=== PATIENT | female | born 1970 | race African-American/Black ===

== ENCOUNTER 2020-05-08 20:34 | Emergency (ER) | payer SELFPAY ==
[2020-05-08 20:45] VITALS: BP 145/95; PULSE 120; RESP 20; TEMP 36.3; O2SAT 98
--- NOTE | 2020-05-08 21:19 | ED.PSYCH ---
HPI - Psych General Chief Complaint: Psychiatric Symptoms <Christine Ferrell MD - Last Filed: 05/09/20 07:02> Stated Complaint: manic <Christine Ferrell MD - Last Filed: 05/09/20 07:02> Time Seen by Provider: 05/08/20 21:18 <Christine Ferrell MD - Last Filed: 05/09/20 07:02> Source: patient and EMS <Christine Ferrell MD - Last Filed: 05/09/20 07:02> Mode of arrival: EMS <Christine Ferrell MD - Last Filed: 05/09/20 07:02> Limitations: clinical condition <Christine Ferrell MD - Last Filed: 05/09/20 07:02> History of Present Illness HPI Narrative: Patient is a 50-year-old female with a history of schizophrenia, bipolar disorder, not currently on any medication who presented to emergency department via EMS. Apparently, a person at [facility] called EMS as the patient was shouting, agitated. Pt transported via EMS. At the time of my assessment, patient is telling me how numerous people are trying to take her away, she states that she is in [place], then states she is in [place]. She is endorsing that her mouth feels dry, otherwise history is very difficult to obtain from this patient. She states people like demons are trying to steal her. She also talks about being part of [employer] and the [employer] service. She says they know where to find her. When I asked specific questions about pain, medical symptoms, patient does not answer. <Christine Ferrell MD - Last Filed: 05/09/20 07:02> Related Data Home Medications: Home Medications Medication Instructions Recorded Confirmed Unable to Obtain Home Medications 05/09/20 05/09/20 <Christine Ferrell MD - Last Filed: 05/09/20 07:02> Allergies/Adverse Reactions: Allergies Allergy/AdvReac Type Severity Reaction Status Date / Time No Known Allergies Allergy Verified 05/09/20 03:46 <Christine Ferrell MD - Last Filed: 05/09/20 07:02> Review of Systems Review of Systems: ROS unobtainable: Yes unobtainable due to medical condition <Christine Ferrell MD - Last Filed: 05/09/20 07:02> [facility] Past Medical History Medical History: Medical History (Updated 05/09/20 @ 04:19 by Christine Ferrell MD) Bipolar disorder Schizophrenia <Christine Ferrell MD - Last Filed: 05/09/20 07:02> Social History Social History: Social History (Updated 05/08/20 @ 21:48 by Christine Ferrell MD) Smoking status: Unknown if ever smoked Substance use type: unknown Gender identity (if verbalized by the patient): Female <Christine Ferrell MD - Last Filed: 05/09/20 07:02> Exam Narrative: Exam Narrative: GENERAL: Awake, alert, rapping, singing HEAD: Normocephalic, atraumatic. EYES: PERRLA and EOMI. ENT: Nares clear, no rhinorrhea or epistaxis. Mucous membranes moist. NECK: Supple. CHEST: No respiratory distress, breathing even and non labored HEART: Tachycardic rate, sinus rhythm ABDOMEN:Non distended, non tender EXTREMITIES: Normal range of motion. No edema. SKIN: Warm, dry, no rash. NEURO:No focal deficits. Alert and oriented x3. Pt ambulatory with narrow based steady gait. Psych: Pressured speech, Pt is screaming, singing, does not answer questions regarding suicidal or homicidal ideation <Christine Ferrell MD - Last Filed: 05/09/20 07:02> Course Reevaluation(s) Reevaluation #1: Patient has been resting and sleeping. She has been accepted to [facility] by DR Cox. <Juanita Ricci MD - Last Filed: 05/09/20 19:41> Date: 05/09/20 <Juanita Ricci MD - Last Filed: 05/09/20 19:41> Time: 16:45 <Juanita Ricci MD - Last Filed: 05/09/20 19:41> Vital Signs Vital signs: Vital Signs Temperature 97.3 F L 05/08/20 20:45 Pulse Rate 120 H 05/08/20 20:45 Respiratory Rate 20 05/08/20 20:45 Blood Pressure 145/95 H 05/08/20 20:45 Pulse Oximetry 98 05/08/20 20:45 Temperature 97.3 F L 05/09/20 06:18 Pulse Rate 102 H 05/09/20 17:55 Respiratory Rate 18 05/09/20
[2020-05-08 21:27] LABS: Basophils Percent Auto 0.4 % (0.2-1.2); Eosinophils Absolute Auto 0.2 K/mm3 (0-0.3); Eosinophils Percent Auto 2.7 % (0-4.4); Hematocrit 29.9 % (37.0-47.0); Hemoglobin 9.4 g/dL (12.0-15.0); Immature Granulocyte Absolute 0.02 K/mm3 (0.00-0.031); Immature Granulocyte Percent A 0.2 % (0-0.5); Lymphocytes Absolute Auto 2.56 K/mm3 (0.9-3.2); Lymphocytes Percent Auto 31.1 % (18.3-44.2); Mean Corpuscular HGB Conc 31.4 g/dl (32-36); Mean Corpuscular Hemoglobin 24.4 pg (26-34); Mean Corpuscular Volume 77.5 fl (80-100); Mean Platelet Volume 10.3 fl (7.4-10.4); Monocytes Absolute Auto 0.6 K/mm3 (0.1-0.6); Monocytes Percent Auto 7.2 % (2.6-8.5); Neutrophils Absolute Auto 4.8 K/mm3 (1.3-6.7); Neutrophils Percent Auto 58.4 % (45.5-73.1); Platelet Count Result 327 k/mm3 (150-375); Red Blood Count 3.86 M/mm3 (4.2-5.4); Red Cell Distribution Width 17.2 % (11.5-14.5); White Blood Count 8.2 K/mm3 (4.5-10.0)
[2020-05-08 21:37] LABS: Ethanol < 10 mg/dL (<10)
[2020-05-08 21:38] LABS: Alanine Aminotransferase 13 U/L (4-35); Alkaline Phosphatase 88 U/L (38-126); Anion Gap 8 mmol/L (8-16); Aspartate Amino Transferase 23 U/L (14-36); Bilirubin,Total 0.1 mg/dL (0.2-1.3); Blood Urea Nitrogen 18 mg/dL (7-17); Calcium 9.1 mg/dL (8.4-10.2); Carbon Dioxide 24 mmol/L (22-30); Chloride 106 mmol/L (98-107); Estimated CRCL calculation 52 ml/min; Estimated Glomerular Filt Rate 59; Glucose 128 mg/dL (65-105); Potassium 3.6 mmol/L (3.4-5.0); Sodium 138 mmol/L (137-145)
--- NOTE | 2020-05-08 21:49 | ECG_ITS ---
Measurements Intervals Hansen Rate: 102 P: 60 NC: 137 QRS: 61 QRSD: 80 T: 34 QT: 333 QTc: 435 Interpretive Statements SINUS TACHYCARDIA BORDERLINE ECG Electronically Signed On 05-09-2020 10:04:09 CDT by Brandt Tirado D.O.
[2020-05-08 22:38] LABS: Add Urine Microscopic? YES; Amorphous Sediment Urine Few; Appearance Urine Cloudy (Clear); Bilirubin Urine 1+ (Negative); Blood Urine Negative (Negative); Color Urine Yellow (Yellow); Glucose Urine UA Negative (Negative); Ketones Urine Negative (Negative); Leukocyte Esterase Ur Trace LEU/UL (Negative); Mucus Urine Heavy /lpf; Nitrate Urine Negative (Negative); Protein Urine 1+ mg/dL (Negative); RBC Urine 0-2 /hpf (0-2); Specific Grav Ur 1.035 (1.001-1.035); Squamous Epithelial Cell Urine Many /hpf (Few); WBC Urine 0-3 /hpf
[2020-05-08 22:51] LABS: Amphetamine Screen Urine Negative (Negative); Barbiturate Screen Urine Negative (Negative); Benzodiazepines Screen Urine Negative (Negative); Cannabinoid Screen Urine Negative (Negative); Cocaine Screen Urine Negative (Negative); Methadone Screen Urine Negative (Negative); Opiate Screen Urine Negative (Negative); Phencyclidine Screen Urine Negative (Negative)
--- NOTE | 2020-05-08 23:25 | PC.NURSE ---
crisis contacted at this time.
--- NOTE | 2020-05-09 01:30 | PC.NURSE ---
Per Twila from [facility], [facility] in [place] wants face sheet only faxed to their facility- fax- [phone], Call center #[phone], Nazia will be faxing paperwork to this facility to be completed. Twila also left a message at [facility].
[2020-05-09 02:02] VITALS: BP 119/80; PULSE 106; RESP 16; O2SAT 100
--- NOTE | 2020-05-09 02:27 | PC.NURSE ---
[facility] called told to fax packet over to them.
[2020-05-09] MEDS: diphenhydrAMINE HCl INJ 50 MG/ML VIAL IM (03:42)
[2020-05-09] MEDS: HALOPERIDOL LACTATE 5 MG/ML VIAL IM (03:44)
--- NOTE | 2020-05-09 03:44 | PC.NURSE ---
pt not cooperating with staff. refusing to stay in room and stop yelling. edp notified. 50mg Benadryl 2 mg Ativan 5mg Haldol given at this time.
--- NOTE | 2020-05-09 05:26 | PC.NURSE ---
[facility] declined at this time. states they are not able to meet patients needs. edp made aware.
[2020-05-09 06:18] VITALS: BP 104/67; PULSE 79; RESP 16; TEMP 36.3; O2SAT 100
[2020-05-09 10:24] VITALS: BP 93/63; PULSE 74; RESP 18; O2SAT 98
--- NOTE | 2020-05-09 10:25 | PC.NURSE ---
Ordered food tray for patient
--- NOTE | 2020-05-09 10:25 | PC.NURSE ---
refaxed chart to [facility]
--- NOTE | 2020-05-09 13:07 | PC.NURSE ---
Pt accepted to [facility]. Waiting to hear from them on accepting dr and bed number
[2020-05-09 14:59] VITALS: BP 135/86; PULSE 107; O2SAT 100
--- NOTE | 2020-05-09 16:00 | PC.NURSE ---
called to check on status of pt admission. Intake states oh they haven't called to get report yet She transferred me to the psych unit to give report
--- NOTE | 2020-05-09 16:32 | PC.NURSE ---
Pt alert and upright on stretcher, pt c/o feeling hungry, breakfast tray remains on stretcher and is untouched/not eaten. Offered pt lunch box due to EMS in route to take pt to facility.
[2020-05-09 17:55] VITALS: BP 125/83; PULSE 102; RESP 18; O2SAT 100
== END 2020-05-09 19:19 ==
PROVIDERS: Emergency Medicine; Emergency Provider General Practice
DX: F23 Brief psychotic disorder (principal); R00.0 Tachycardia, unspecified; F31.9 Bipolar disorder, unspecified
CPT/HCPCS: 36415; 80053; 80307; 81001; 81025; 84443; 85025; 93005; 96372; 99285; J1200; J1630; J2060

== ENCOUNTER 2020-05-30 17:57 | Emergency (ER) | payer OTHER, SELFPAY ==
--- NOTE | ~2020-05-30 | CT_ITS ---
EXAMINATION: CTA brain carotid DATE: 05/30/2020 18:59 INDICATION: Headache. TECHNIQUE: Computed tomographic angiography (CTA) of the head was performed without and with 100 mL O mnipaque-350 intravenous contrast. CTA of the neck was performed with intravenous contrast. Automated exposure control and iterative reconstruction technique were employed. The dose-length product was 1 612.86 mGy-cm. Maximum intensity projection and volume rendered 3D-reconstructions were created by richy valadez technologist on a separate workstation. COMPARISON: None. FINDINGS: HEAD CTA: There is no intracranial hemorrhage, acute infarction, or abnormal intracranial mass lesion . The ventricles are normal in size. The paranasal sinuses are clear. The orbits are normal. The mast oid air cells are normal. Vertebral arteries are codominant. There is no significant stenosis of basi lar artery or the posterior cerebral arteries. There is no significant stenosis of the intracranial i nternal carotid arteries or anterior or middle cerebral arteries. Anterior communicating artery is no rmal. The posterior communicating arteries are normal. 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 NECK CTA: There are bilateral pleural effusions. There are no pathologically enlarged lymph nodes. Th ere is no significant stenosis of the vertebral arteries. There is mild plaque in the proximal right internal carotid artery. There is 0% stenosis of the proximal right internal carotid artery relative to normal distal artery lumen diameter (NASCET criteria). There is 0% stenosis of the proximal left i nternal carotid artery relative to normal distal artery lumen diameter. There is mild cervical spondy losis. IMPRESSION: 1. 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 2. 0% stenosis of the proximal internal carotid arteries relative to normal distal artery lumen diame ters (NASCET criteria). Reviewed, dictated and finalized at location A. IMPRESSION: 1. 3 mm aneurysm of supraclinoid left internal carotid artery directed superior ly. 2. 0% stenosis of the proximal internal carotid arteries relative to normal dis lorenzo artery lumen diameters (NASCET criteria).
[2020-05-30 17:59] VITALS: BP 123/75; PULSE 91; RESP 18; TEMP 36.4; O2SAT 100
--- NOTE | 2020-05-30 18:05 | PC.NURSE ---
verbal order from [facility] for cta brain and neck.
[2020-05-30 18:16] LABS: Basophils Absolute Auto 0.1 K/mm3 (0.0-0.1); Basophils Percent Auto 0.6 % (0.2-1.2); Eosinophils Absolute Auto 0.5 K/mm3 (0-0.3); Eosinophils Percent Auto 5.3 % (0-4.4); Hematocrit 28.4 % (37.0-47.0); Hemoglobin 8.9 g/dL (12.0-15.0); Immature Granulocyte Absolute 0.02 K/mm3 (0.00-0.031); Immature Granulocyte Percent A 0.2 % (0-0.5); Lymphocytes Absolute Auto 2.84 K/mm3 (0.9-3.2); Lymphocytes Percent Auto 33.5 % (18.3-44.2); Mean Corpuscular HGB Conc 31.3 g/dl (32-36); Mean Corpuscular Hemoglobin 23.9 pg (26-34); Mean Corpuscular Volume 76.3 fl (80-100); Mean Platelet Volume 9.6 fl (7.4-10.4); Monocytes Absolute Auto 0.7 K/mm3 (0.1-0.6); Monocytes Percent Auto 7.8 % (2.6-8.5); Neutrophils Absolute Auto 4.5 K/mm3 (1.3-6.7); Neutrophils Percent Auto 52.6 % (45.5-73.1); Platelet Count Result 326 k/mm3 (150-375); Red Blood Count 3.72 M/mm3 (4.2-5.4); Red Cell Distribution Width 17.5 % (11.5-14.5); White Blood Count 8.5 K/mm3 (4.5-10.0)
[2020-05-30 18:24] LABS: Add Urine Microscopic? YES; Appearance Urine Clear (Clear); Bilirubin Urine Negative (Negative); Blood Urine Negative (Negative); Color Urine Yellow (Yellow); Glucose Urine UA Negative (Negative); Ketones Urine Negative (Negative); Leukocyte Esterase Ur Negative LEU/UL (Negative); Mucus Urine Rare /lpf; Nitrate Urine Negative (Negative); Protein Urine Negative (Negative); RBC Urine 0-2 /hpf (0-2); Specific Grav Ur 1.026 (1.001-1.035); Squamous Epithelial Cell Urine Rare /hpf (Few); Urobilinogen Urine Negative mg/dL (<2.0); WBC Urine 0-3 /hpf
[2020-05-30 18:49] LABS: Anion Gap 4 mmol/L (8-16); Blood Urea Nitrogen 18 mg/dL (7-17); Calcium 8.6 mg/dL (8.4-10.2); Carbon Dioxide 27 mmol/L (22-30); Chloride 106 mmol/L (98-107); Estimated CRCL calculation 66 ml/min; Estimated Glomerular Filt Rate > 60; Glucose 96 mg/dL (65-105); Potassium 4.2 mmol/L (3.4-5.0); Sodium 137 mmol/L (137-145)
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
[2020-05-30 19:21] VITALS: BP 132/84; PULSE 88; RESP 16; O2SAT 98
== END 2020-05-30 20:42 | disposition home or self-care (01) ==
PROVIDERS: Emergency Medicine; Emergency Provider Emergency Medicine
DX: R51 Headache (principal); F31.9 Bipolar disorder, unspecified; I67.1 Cerebral aneurysm, nonruptured
CPT/HCPCS: 36415; 70496; 70498; 80048; 81001; 81025; 85025; 99284; Q9967

== ENCOUNTER 2023-08-14 10:56 | Emergency (ER) | payer OTHER, SELFPAY ==
[2023-08-14 11:08] VITALS: PULSE 109; RESP 18; TEMP 36.8; O2SAT 100
[2023-08-14 11:36] LABS: Basophils Percent Auto 0.3 % (0.2-1.2); Eosinophils Percent Auto 0.4 % (0-4.4); Hematocrit 37.4 % (37.0-47.0); Hemoglobin 11.7 g/dL (12.0-15.0); Immature Granulocyte Absolute 0.02 K/mm3 (0.00-0.031); Immature Granulocyte Percent A 0.2 % (0-0.5); Lymphocytes Absolute Auto 1.68 K/mm3 (0.9-3.2); Lymphocytes Percent Auto 17.6 % (18.3-44.2); Mean Corpuscular HGB Conc 31.3 g/dl (32-36); Mean Corpuscular Hemoglobin 26.2 pg (26-34); Mean Corpuscular Volume 83.7 fl (80-100); Mean Platelet Volume 9.8 fl (7.4-10.4); Monocytes Absolute Auto 0.6 K/mm3 (0.1-0.6); Monocytes Percent Auto 5.9 % (2.6-8.5); Neutrophils Absolute Auto 7.2 K/mm3 (1.3-6.7); Neutrophils Percent Auto 75.6 % (45.5-73.1); Platelet Count Result 350 k/mm3 (150-375); Red Blood Count 4.47 M/mm3 (4.2-5.4); Red Cell Distribution Width 15.4 % (11.5-14.5); White Blood Count 9.5 K/mm3 (4.5-10.0)
[2023-08-14 11:47] LABS: Alanine Aminotransferase 19 U/L (6-35); Albumin Level 4.7 g/dL (3.5-5.1); Alkaline Phosphatase 121 U/L (38-126); Anion Gap 12 mmol/L (8-16); Aspartate Amino Transferase 23 U/L (14-36); Bilirubin,Total 0.6 mg/dL (0.2-1.3); Blood Urea Nitrogen 12 mg/dL (7-17); Calcium 10.3 mg/dL (8.4-10.2); Carbon Dioxide 26 mmol/L (22-30); Chloride 102 mmol/L (98-107); Estimated CRCL calculation 57 ml/min; Estimated Glomerular Filt Rate > 60; Ethanol < 10 mg/dL (<10); Glucose 138 mg/dL (65-110); Potassium 4.5 mmol/L (3.4-5.0); Sodium 140 mmol/L (137-145)
[2023-08-14 12:17] LABS: Thyroid Stimulating Hormone < 0.015 uIU/mL (0.465-4.680)
[2023-08-14 12:31] LABS: Appearance Urine Clear (Clear); Bacteria Urine Rare /hpf; Bilirubin Urine Negative (Negative); Blood Urine Negative (Negative); Color Urine Yellow (Yellow); Glucose Urine UA Negative (Negative); Ketones Urine Negative (Negative); Leukocyte Esterase Ur 3+ LEU/UL (Negative); Need Manual Microscopic Reviewed; Nitrate Urine Negative (Negative); Non Pathogenic Casts 0-2; Protein Urine Negative (Negative); RBC Urine 0-2 /hpf (0-2); Specific Grav Ur 1.004 (1.001-1.035); Squamous Epithelial Cell Urine None seen /hpf (Few); Urobilinogen Urine 0.2 mg/dL (<2.0); WBC Urine 0-5 /hpf; pH Urine 5.5 (5.0-9.0)
[2023-08-14 12:34] LABS: Add Urine Microscopic? YES
[2023-08-14 12:45] LABS: Amphetamine Screen Urine Negative (Negative); Barbiturate Screen Urine Negative (Negative); Benzodiazepines Screen Urine Negative (Negative); Cannabinoid Screen Urine Negative (Negative); Cocaine Screen Urine Negative (Negative); Methadone Screen Urine Negative (Negative); Opiate Screen Urine Negative (Negative); Phencyclidine Screen Urine Negative (Negative)
[2023-08-14 13:18] LABS: SARS-CoV-2 RNA PCR Negative (Negative)
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
[2023-08-14 16:58] VITALS: BP 131/92; PULSE 80; RESP 16; O2SAT 100
== END 2023-08-14 17:00 | disposition home or self-care (01) ==
PROVIDERS: Emergency Provider Emergency Medicine
DX: E05.90 Thyrotoxicosis, unspecified without thyrotoxic crisis or storm (principal); F31.9 Bipolar disorder, unspecified; F20.9 Schizophrenia, unspecified; Z11.52 Encounter for screening for COVID-19
CPT/HCPCS: 36415; 80053; 80307; 81001; 84443; 85025; 87635; 99284